=== PATIENT | female | born 1955 | race Caucasian/White ===

== ENCOUNTER 2017-03-25 02:03 | Emergency (ER) | payer OTHER ==
[~2017-03-25] VITALS: Ht 162.6 cm; Wt 120.8 kg
[~2017-03-25 02:03] MED LIST: CIPROFLOXACN500 MG PO; FLAGYL500 MG PO; IMITREX100 MG PO; MELOXICAM15 MG PO; METRONIDAZOL500 MG PO; NO; NORCO1 TA1 PO; RESTORIL15 MG PO; ULTRAM50 M1 PO; ULTRAM50 MG PO
[2017-03-25] MEDS ORDERED: LEVOTHYROXINE88 MCG PO (02:10)
[2017-03-25] MEDS ORDERED: HYZAAR1 TA2 PO (02:10)
[2017-03-25] MEDS ORDERED: VITAMIN B CO PO (02:11)
[2017-03-25] MEDS ORDERED: PROPRANOLOL80 M1 PO (02:11)
[2017-03-25 02:47] LABS: HEMATOCRIT 37.7 % (37.0-47.0); HEMOGLOBIN 12.6 g/dl (12.0-16.0); IMMATURE GRANULOCYTES 0.3 % (0.0-1.0); MEAN CELL VOLUME 90.6 fL CALC (80.0-100.0); MEAN CORPUSCULAR HGB 30.3 pG CALC (26.0-32.0); MEAN CORPUSCULAR HGB CONC 33.4 g/L CALC (32.0-36.0); NEUT# 6.06 thou/uL (2.00-7.15); RED BLOOD COUNT 4.16 mill/uL (4.20-5.60); RED CELL DISTRI WIDTH 13.5 % (11.5-15.5)
[2017-03-25 02:47] LABS: URINE BILIRUBIN - DIPSTICK NEGATIVE (NEGATIVE); URINE BLOOD DIPSTICK NEGATIVE (NEGATIVE); URINE CLARITY CLEAR; URINE COLOR YELLOW; URINE GLUCOSE - DIPSTICK NEGATIVE (NEGATIVE); URINE KETONE NEGATIVE (NEGATIVE); URINE LEUK ESTERASE NEGATIVE (NEGATIVE); URINE NITRITE - DIPSTICK NEGATIVE (Negative); URINE PROTEIN - DIPSTICK NEGATIVE (NEG-TRACE)
[2017-03-25 03:05] LABS: ALBUMIN 4.1 g/dL (3.2-5.0); ALKALINE PHOSPHATASE 77 u/l (38-126); AMYLASE < 30 u/l (30-110); ANION GAP 16 (6-22 (CALC)); BILIRUBIN, TOTAL 0.5 mg/dL (0.0-1.4); BUN 21 mg/dL (8-23); BUN/CREATININE RATIO 22 (12-20 (CALC)); CALCIUM 9.3 mg/dL (8.4-10.2); CARBON DIOXIDE 27 mmol/l (22-30); CHLORIDE 102 mmol/l (95-108); GFR 56 ML/MIN (>=60 (CALC)); GFR FOR AFR.AMER. > 60 ML/MIN (>=60 (CALC)); GLUCOSE 112 mg/dL (82-115); LIPASE 22 u/l (23-300); POTASSIUM 3.9 mmol/l (3.5-5.1); SGOT/AST 16 u/l (9-36); SGPT/ALT 29 u/l (11-66); SODIUM 140 mmol/l (137-146)
[2017-03-25] MEDS ORDERED: ULTRAM50 M1 PO (04:33)
[2017-03-25 05:04] VITALS: BP 129/59
== END 2017-03-25 05:04 | disposition home or self-care (01) | DRG 556 ==
LOC: ED 02:03
PROVIDERS: Emergency Medicine
DX: M79.1 Myalgia (principal); I10 Essential (primary) hypertension; E03.9 Hypothyroidism, unspecified; K21.9 Gastro-esophageal reflux disease without esophagitis
CPT/HCPCS: Q9967

== ENCOUNTER 2017-07-31 18:39 | Emergency (ER) | payer OTHER ==
[~2017-07-31] VITALS: Ht 162.6 cm; Wt 122.2 kg
[~2017-07-31 18:39] MED LIST changes: +HYZAAR1 TA2 PO; +LEVOTHYROXINE88 MCG PO; +PROPRANOLOL80 M1 PO; +VITAMIN B CO PO
[2017-07-31] MEDS ORDERED: RANITIDINE75 M1 PO (19:38)
[2017-07-31 20:18] LABS: URINE BILIRUBIN - DIPSTICK NEGATIVE (NEGATIVE); URINE BLOOD DIPSTICK NEGATIVE (NEGATIVE); URINE CLARITY CLEAR; URINE COLOR YELLOW; URINE GLUCOSE - DIPSTICK NEGATIVE (NEGATIVE); URINE KETONE NEGATIVE (NEGATIVE); URINE LEUK ESTERASE SMALL (NEGATIVE); URINE NITRITE - DIPSTICK NEGATIVE (Negative); URINE PH 6.5 (4.5-8.0); URINE PROTEIN - DIPSTICK NEGATIVE (NEG-TRACE); URINE SPECIFIC GRAVITY 1.015
[2017-07-31 20:19] LABS: HEMATOCRIT 40.1 % (37.0-47.0); HEMOGLOBIN 13.4 g/dl (12.0-16.0); IMMATURE GRANULOCYTES 0.1 % (0.0-1.0); MEAN CELL VOLUME 90.5 fL CALC (80.0-100.0); MEAN CORPUSCULAR HGB 30.2 pG CALC (26.0-32.0); MEAN CORPUSCULAR HGB CONC 33.4 g/L CALC (32.0-36.0); NEUT# 5.6 thou/uL (2.00-7.15); RED BLOOD COUNT 4.43 mill/uL (4.20-5.60); RED CELL DISTRI WIDTH 13.3 % (11.5-15.5)
[2017-07-31 20:33] LABS: URINE SQUAMOUS EPITHELIAL CELL FEW EPI/hpf (0-FEW)
[2017-07-31 20:43] LABS: ALBUMIN 4.3 g/dL (3.2-5.0); ALKALINE PHOSPHATASE 80 u/l (38-126); AMYLASE 31 u/l (30-110); ANION GAP 16 (6-22 (CALC)); BILIRUBIN, TOTAL 0.5 mg/dL (0.0-1.4); BUN 17 mg/dL (8-23); BUN/CREATININE RATIO 20 (12-20 (CALC)); CARBON DIOXIDE 30 mmol/l (22-30); CHLORIDE 101 mmol/l (95-108); CREATININE 0.9 mg/dL (0.5-1.0); GFR > 60 ML/MIN (>=60 (CALC)); GFR FOR AFR.AMER. > 60 ML/MIN (>=60 (CALC)); GLUCOSE 109 mg/dL (82-115); LIPASE 25 u/l (23-300); POTASSIUM 3.4 mmol/l (3.5-5.1); SGOT/AST 20 u/l (9-36); SGPT/ALT 24 u/l (11-66); SODIUM 143 mmol/l (137-146); TOTAL PROTEIN 7.1 g/dL (6.3-8.2)
[2017-07-31] MEDS ORDERED: ORPHENADRINE100 MG PO (22:33)
[2017-07-31] MEDS ORDERED: PERCOCET 5/325M1 TAB PO (22:33)
[2017-07-31 22:52] VITALS: BP 146/74
== END 2017-07-31 22:52 | disposition home or self-care (01) | DRG 563 ==
LOC: ED 18:39
PROVIDERS: Emergency Medicine
DX: S39.011A Strain of muscle, fascia and tendon of abdomen, initial encounter (principal); E07.9 Disorder of thyroid, unspecified; X58.XXXA Exposure to other specified factors, initial encounter

== ENCOUNTER 2018-10-04 09:40 | Emergency (ER) | payer OTHER ==
[~2018-10-04] VITALS: Ht 162.6 cm; Wt 120.0 kg
[~2018-10-04 09:40] MED LIST changes: +ORPHENADRINE100 MG PO; +PERCOCET 5/325M1 TAB PO; +RANITIDINE75 M1 PO
[2018-10-04 10:20] LABS: HEMATOCRIT 40.8 % (37.0-47.0); HEMOGLOBIN 13.5 g/dl (12.0-16.0); IMMATURE GRANULOCYTES 0.4 % (0.0-5.0); MEAN CELL VOLUME 91.1 fL CALC (80.0-100.0); MEAN CORPUSCULAR HGB 30.1 pG CALC (26.0-32.0); MEAN CORPUSCULAR HGB CONC 33.1 g/L CALC (32.0-36.0); NEUT# 5.43 thou/uL (2.00-7.15); RED BLOOD COUNT 4.48 mill/uL (4.20-5.60); RED CELL DISTRI WIDTH 13.1 % (11.5-15.5)
[2018-10-04 10:31] LABS: ALBUMIN 4.4 g/dL (3.2-5.0); ALKALINE PHOSPHATASE 85 u/l (38-126); BILIRUBIN, TOTAL 0.5 mg/dL (0.0-1.4); BUN 17 mg/dL (8-23); BUN/CREATININE RATIO 21 (12-20 (CALC)); CARBON DIOXIDE 25 mmol/l (22-30); CHLORIDE 102 mmol/l (95-108); CREATININE 0.8 mg/dL (0.5-1.0); GFR > 60 ML/MIN (>=60 (CALC)); GFR FOR AFR.AMER. > 60 ML/MIN (>=60 (CALC)); SGOT/AST 17 u/l (9-36); SODIUM 139 mmol/l (137-146); TOTAL PROTEIN 7.5 g/dL (6.3-8.2)
[2018-10-04 10:33] LABS: ANION GAP 16 (6-22 (CALC)); POTASSIUM 4.2 mmol/l (3.5-5.1)
[2018-10-04] MEDS ORDERED: VITAMIN D31000 UNI1 PO (11:02)
[2018-10-04 14:04] LABS: COCAINE NEGATIVE (NEGATIVE); TETRAHYDROCANNABIONOL NEGATIVE (NEGATIVE)
[2018-10-04 14:05] LABS: BARBITURATES NEGATIVE (NEGATIVE); METHADONE NEGATIVE (NEGATIVE); OXCYCODONE NEGATIVE (NEGATIVE); TRICYLIC ANTIDEPRESSANTS NEGATIVE (NEGATIVE)
[2018-10-04 15:52] VITALS: BP 125/59
== END 2018-10-04 16:06 | disposition home or self-care (01) | DRG 313 ==
LOC: ED 09:40
PROVIDERS: Emergency Medicine
DX: R07.89 Other chest pain (principal); K80.20 Calculus of gallbladder without cholecystitis without obstruction; R78.4 Finding of other drugs of addictive potential in blood; I10 Essential (primary) hypertension
CPT/HCPCS: Q9967

== ENCOUNTER 2019-05-10 18:56 | Emergency (ER) | payer OTHER ==
[~2019-05-10] VITALS: Ht 162.6 cm; Wt 121.3 kg
[~2019-05-10 18:56] MED LIST changes: +INDERAL80 M1 PO; -PROPRANOLOL80 M1 PO; +VITAMIN D31000 UNI1 PO
[2019-05-10] MEDS ORDERED: PHENTERMINE H37.5 M2 PO (19:13)
[2019-05-10] MEDS ORDERED: INDERAL 20MG TA20 MG PO (19:26)
[2019-05-10] MEDS ORDERED: PHENTERMINE H37.5 M1 PO (19:26)
[2019-05-10] MEDS ORDERED: RANITIDINE HCL150 MG PO (19:27)
[2019-05-10] MEDS ORDERED: HYDROCHLOROT25 MG PO (19:27)
[2019-05-10] MEDS ORDERED: LOSARTAN POTAS100 MG PO (19:27)
[2019-05-10] MEDS ORDERED: SYNTHROID88 MCG PO (19:30)
[2019-05-10 19:52] LABS: HEMOGLOBIN 12.8 g/dl (12.0-16.0); IMMATURE GRANULOCYTES 0.3 % (0.0-5.0); MEAN CELL VOLUME 89.4 fL CALC (80.0-100.0); MEAN CORPUSCULAR HGB 30.1 pG CALC (26.0-32.0); MEAN CORPUSCULAR HGB CONC 33.7 g/L CALC (32.0-36.0); NEUT# 6.68 thou/uL (2.00-7.15); RED BLOOD COUNT 4.25 mill/uL (4.20-5.60); RED CELL DISTRI WIDTH 13.2 % (11.5-15.5)
[2019-05-10 19:57] LABS: ANION GAP 16 (6-22 (CALC)); BUN 19 mg/dL (8-23); BUN/CREATININE RATIO 17 (12-20 (CALC)); CARBON DIOXIDE 28 mmol/l (22-30); CHLORIDE 97 mmol/l (95-108); CREATININE 1.1 mg/dL (0.5-1.0); GFR 50 ML/MIN (>=60 (CALC)); GFR FOR AFR.AMER. > 60 ML/MIN (>=60 (CALC)); POTASSIUM 3.5 mmol/l (3.5-5.1); SODIUM 137 mmol/l (137-146)
[2019-05-10] MEDS ORDERED: KEFLEX500 MG PO (21:02)
[2019-05-10 21:10] VITALS: BP 106/64
== END 2019-05-10 21:10 | disposition home or self-care (01) | DRG 603 ==
LOC: ED 18:56
DX: L03.115 Cellulitis of right lower limb (principal); I10 Essential (primary) hypertension

== ENCOUNTER 2022-11-14 10:48 | Emergency (ER) | payer MEDICARE ==
[2022-11-14] VITALS (10 sets, daily range): BP systolic 119–136; BP diastolic 55–65
[~2022-11-14] VITALS: Ht 162.6 cm; Wt 105.0 kg
[~2022-11-14 10:48] MED LIST changes: +HYDROCHLOROT25 MG PO; +INDERAL 20MG TA20 MG PO; +KEFLEX500 MG PO; +LOSARTAN POTAS100 MG PO; +PHENTERMINE H37.5 M1 PO; +PHENTERMINE H37.5 M2 PO; +RANITIDINE HCL150 MG PO; +SYNTHROID88 MCG PO
[2022-11-14] MEDS ORDERED: OZEMPIC2 MG (11:03)
[2022-11-14 11:46] LABS: BASO% 0.4 % (0-3); EOS% 1.4 % (0-8); HEMATOCRIT 37.6 % (37.0-47.0); HEMOGLOBIN 13.1 g/dl (12.0-16.0); IMMATURE GRANULOCYTES 0.1 % (0.0-5.0); LYMPH% 15.5 % (15-41); MEAN CELL VOLUME 89.1 fL CALC (80.0-100.0); MEAN CORPUSCULAR HGB CONC 34.8 g/dL CAL (32.0-36.0); MONO% 6.8 % (2-13); NEUT# 6.15 thou/uL (2.00-7.15); NEUT% 75.8 % (42-76); RED BLOOD COUNT 4.22 mill/uL (4.20-5.60)
[2022-11-14 11:53] LABS: ALBUMIN 4.6 g/dL (3.2-5.0); ALKALINE PHOSPHATASE 67 u/l (38-126); ANION GAP 13 (6-22 (CALC)); BUN 16 mg/dL (8-23); BUN/CREATININE RATIO 20 (12-20 (CALC)); CARBON DIOXIDE 24 mmol/l (22-30); CHLORIDE 103 mmol/l (95-108); CREATININE 0.8 mg/dL (0.5-1.0); GFR FOR AFR.AMER. > 60 ML/MIN (>=60 (CALC)); GFR OTHER RACES > 60 ML/MIN (>=60 (CALC)); SODIUM 137 mmol/l (137-146); TOTAL PROTEIN 7.8 g/dL (6.3-8.2)
[2022-11-14 11:54] LABS: SGOT/AST 31 u/l (9-36)
[2022-11-14] MEDS ORDERED: DULCOLAX10 MG RE (13:58)
[2022-11-14] MEDS ORDERED: MIRALAX17 GM PO (13:58)
== END 2022-11-14 14:20 | disposition home or self-care (01) ==
LOC: ED 10:48
PROVIDERS: Family Medicine
DX: K59.00 Constipation, unspecified (principal); I10 Essential (primary) hypertension